=== PATIENT | male | born 1975 | race Caucasian/White ===

== ENCOUNTER 2022-03-12 11:29 | Emergency (ER) | payer BC ==
[~2022-03-12] VITALS: Ht 182 cm; Wt 115.0 kg
[~2022-03-12 11:29] MED LIST: ALPR1T; CTLP20T
[2022-03-12] MEDS ORDERED: NS IV 1000 ML 1,000 ML IV ONE (12:45)
[2022-03-12] MEDS ORDERED: ONDANSETRON 4 MG/2 ML (SDV) Z0FRAN IVP ONE (12:45)
[2022-03-12 12:50] LABS: BASOPHILS % (AUTO) 0 % (0-10); EOSINOPHILS % (AUTO) 0 % (0-10); HEMATOCRIT 53 % (40-54); HEMOGLOBIN 17.9 g/dL (13.3-17.7); LYMPHOCYTES # (AUTO) 1.4 10^3/uL (1.0-4.0); LYMPHOCYTES % (AUTO) 14 % (12-44); MEAN CORPUSCULAR HEMOGLOBIN 29 pg (25-34); MEAN CORPUSCULAR HGB CONC 34 g/dL (32-36); MEAN CORPUSCULAR VOLUME 87 fL (80-99); MEAN PLATELET VOLUME 11.1 fL (9.0-12.2); MONOCYTES % (AUTO) 10 % (0-12); NEUTROPHILS # (AUTO) 7.8 10^3/uL (1.8-7.8); NEUTROPHILS % (AUTO) 76 % (42-75); PLATELET COUNT 205 10^3/uL (130-400); WHITE BLOOD COUNT 10.3 10^3/uL (4.3-11.0)
--- NOTE | 2022-03-12 12:51 | ED General ---
General Chief Complaint: Cough/Cold/Flu Symptoms Stated Complaint: FLU + | DEHYDRATED Source of Information: Patient Exam Limitations: No Limitations History of Present Illness Date Seen by Provider: Mar 12, 2022 Time Seen by Provider: 12:34 Initial Comments This is a 46-year-old male with no significant past medical history per patient, he is influenza A positive has been having nausea and vomiting over the past 4 days. He was seen at [facility] today for persistent vomiting and was noted to have yellow discoloration on the lateral aspect of his bilateral eyes. He was instructed to go to the ER for evaluation for concerns of scleral icterus. He has upper abdominal discomfort, describes as sore muscles from persistent vomiting. States he is having normal bowel movement, last this morning, brown in color. Allergies and Home Medications Allergies Coded Allergies: No Known Drug Allergies (Unverified Allergy, Mild, 01/19/08) Patient Home Medication List Alprazolam (Xanax) 1 Mg Tab, (Reported) Entered as Reported by: FRAN HART on 01/19/08 1607 Citalopram Hydrobromide (Celexa) 20 Mg Tab, (Reported) Entered as Reported by: FRAN HART on 01/19/08 1608 Past Bplovny-Ytxziu-Ktkrph Hx Patient Social History Tobacco Use?: No Use of E-Cig and/or Vaping dev: No Substance use?: No Alcohol Use?: Yes Alcohol Frequency: Daily Pt feels they are or have been: No Immunizations Up To Date Influenza Vaccine Up-to-Date: No; Not Current First/Initial COVID19 Vaccinat: NO VACC Past Medical History Surgery/Hospitalization HX: DIVERTICULITIS, APPENDECTOMY, LEFT SHOULDER REPAIR Reproductive Disorders: No Physical Exam Vital Signs Capillary Refill : Height, Weight, BMI Height: '" Weight: lbs. oz. kg; BMI Method: Progress/Results/Core Measures Suspected Sepsis SIRS Temperature: Pulse: Respiratory Rate: Laboratory Tests 03/12/22 12:30: White Blood Count 10.3 Blood Pressure / Mean: Laboratory Tests 03/12/22 12:30: Creatinine 1.40H, Platelet Count 205, Total Bilirubin 0.7 Results/Orders Lab Results Laboratory Tests Test 03/12/22 12:30 Range/Units White Blood Count 10.3 4.3-11.0 10^3/uL Red Blood Count 6.08 H 4.30-5.52 10^6/uL Hemoglobin 17.9 H 13.3-17.7 g/dL Hematocrit 53 40-54 % Mean Corpuscular Volume 87 80-99 fL Mean Corpuscular Hemoglobin 29 25-34 pg Mean Corpuscular Hemoglobin Concent 34 32-36 g/dL Red Cell Distribution Width 13.2 10.0-14.5 % Platelet Count 205 130-400 10^3/uL Mean Platelet Volume 11.1 9.0-12.2 fL Immature Granulocyte % (Auto) 1 % Neutrophils (%) (Auto) 76 H 42-75 % Lymphocytes (%) (Auto) 14 12-44 % Monocytes (%) (Auto) 10 0-12 % Eosinophils (%) (Auto) 0 0-10 % Basophils (%) (Auto) 0 0-10 % Neutrophils # (Auto) 7.8 1.8-7.8 10^3/uL Lymphocytes # (Auto) 1.4 1.0-4.0 10^3/uL Monocytes # (Auto) 1.0 0.0-1.0 10^3/uL Eosinophils # (Auto) 0.0 0.0-0.3 10^3/uL Basophils # (Auto) 0.0 0.0-0.1 10^3/uL Immature Granulocyte # (Auto) 0.1 0.0-0.1 10^3/uL Sodium Level 135 135-145 MMOL/L Potassium Level 4.3 3.6-5.0 MMOL/L Chloride Level 100 98-107 MMOL/L Carbon Dioxide Level 21 21-32 MMOL/L Anion Gap 14 5-14 MMOL/L Blood Urea Nitrogen 22 H 7-18 MG/DL Creatinine 1.40 H 0.60-1.30 MG/DL Estimat Glomerular Filtration Rate 62 BUN/Creatinine Ratio 16 Glucose Level 153 H 70-105 MG/DL Calcium Level 9.1 8.5-10.1 MG/DL Corrected Calcium 9.1 8.5-10.1 MG/DL Total Bilirubin 0.7 0.1-1.0 MG/DL Aspartate Amino Transf (AST/SGOT) 19 5-34 U/L Alanine Aminotransferase (ALT/SGPT) 28 0-55 U/L Alkaline Phosphatase 47 40-136 U/L Total Protein 6.9 6.4-8.2 GM/DL Albumin 4.0 3.2-4.5 GM/DL My Orders Orders - RAMESH SUÁREZ [employer] Ua Culture If Indicated (03/12/22 11:54) Cbc With Automated Diff (03/12/22 12:42) Comprehensive Metabolic Panel (03/12/22 12:42) Ns Iv 1000 Ml (Sodium Chloride 0.9%) (03/12/22 12:45) Ondansetron Injection (Zofran Injectio (03/12/22 12:45) Medications Given in ED Current Medications Medications Dose Ordered Sig/Adan Route Start Time Stop Time Status Last Admin Dose Admin Ondansetron HCl 4 mg ONCE ONCE IVP 03/12/22 12:45 03/12/22 12:46 DC 03/12/22 12:53 4 MG Sodium Chloride 1,000 ml @ 0 mls/hr Q0M ONCE IV 03/12/22 12:45 03/12/22 12:46 DC 03/12/22 12:53 1,000 MLS/HR Vital Signs/I&O Capillary Refill : Departure Impression Primary Impression: Influenza Additional Impression: Dehydration Disposition: 01 HOME, SELF-CARE Condition: Stable Departure-Patient Inst. Decision time for Depature: 13:20 Referrals: CRISTA HUA MD (PCP/Family) Primary Care Physician Patient Instructions: Flu, Adult (DC) Add. Discharge Instructions: Plan: 1. Do not drink alcohol as this can worsen your liver function. Recommend having follow-up with your primary care provider in an outpatient ultrasound of your liver. 2. Make sure you are drinking plenty of fluids to keep your urine pale in color. 3. You can take ibuprofen as needed 600 mg every 6 hours as needed. 4. If you have increased yellowing of your eyes, skin, any other new or concerning symptoms you need to return to the ER so we can reevaluate. 5. Take Zofran 4 mg by mouth every 6 hours as needed for nausea and vomiting. All discharge instructions reviewed with patient and/or family. Voiced understanding. Scripts Ondansetron (Ondansetron Odt) 4 Mg Tab.rapdis 4 MG SL Q6H PRN for NAUSEA/VOMITING, #10 TAB 0 Refills Prov: RAMESH SUÁREZ [employer] 03/12/22 RAMESH SUÁREZ [employer] Mar 12, 2022 12:51
[2022-03-12 13:03] LABS: BILIRUBIN,TOTAL 0.7 MG/DL (0.1-1.0); CALCIUM 9.1 MG/DL (8.5-10.1); CREATININE SERUM 1.4 MG/DL (0.60-1.30); POTASSIUM 4.3 MMOL/L (3.6-5.0); TOTAL PROTEIN 6.9 GM/DL (6.4-8.2)
[2022-03-12] MEDS ORDERED: ONDA4TAB11 SL (13:22)
[2022-03-12] MEDS ORDERED: NS IV 1000 ML 1,000 ML IV SCH (13:30)
[2022-03-12 14:19] VITALS: BP 146/101
== END 2022-03-12 14:20 | disposition home or self-care (01) ==
LOC: EDUNIT# 11:29 → ER 11:33
DX: J11.1 Influenza due to unidentified influenza virus with other respiratory manifestations (principal); E86.0 Dehydration; Z28.310 Unvaccinated for COVID-19
CPT/HCPCS: 36415; 80053; 85025; 99281

== ENCOUNTER → 2022-03-29 | Outpatient (CLI) | payer BC ==
[~2022-03-29] MED LIST changes: +ONDA4TAB11 SL
== END ==
LOC: CARD 10:24
PROVIDERS: ATTEND Family Medicine
DX: I51.7 Cardiomegaly (principal)
CPT/HCPCS: 93306